=== PATIENT | female | born 1990 | race Caucasian/White ===

== ENCOUNTER 2019-08-06 05:48 | Inpatient (IN) | payer OTHER, MEDICAID ==
[~2019-08-06] VITALS: Ht 152.4 cm; Wt 78.6 kg
[2019-08-06] MEDS ORDERED: D5%-LACTATED RINGERS 1,000 ML IV SCH (05:51)
[2019-08-06] MEDS ORDERED: OXYTOCIN 30U/ 0.9% NaCL 500ML 500 ML IV ONE (05:51)
[2019-08-06] MEDS ORDERED: NEWBORN KIT ONE (05:55)
[2019-08-06] MEDS ORDERED: OXYTOCIN 30U/ 0.9% NaCL 500ML 500 ML ONE (05:55)
[2019-08-06] MEDS ORDERED: MISOPROSTOL 200 MCG TABLET ONE (05:55)
[2019-08-06] MEDS ORDERED: LIDOCAINE 1%, 20ML ONE (05:55)
[2019-08-06] MEDS ORDERED: CALCIUM CARBONATE 500 MG TAB.CHEW PO PRN (06:00)
[2019-08-06] MEDS ORDERED: TERBUTALINE 1 MG/ML, 1ML IVPush PRN (06:00)
[2019-08-06] MEDS ORDERED: FENTANYL PF 100 MCG/2ML IVPush PRN (06:00)
[2019-08-06] MEDS ORDERED: ONDANSETRON 2MG/ML, 2ML IVPush PRN (06:00)
[2019-08-06] MEDS ORDERED: TERBUTALINE 1 MG/ML, 1ML SQ PRN (06:00)
[2019-08-06] MEDS ORDERED: FENTANYL PF 100 MCG/2ML IV PRN (06:00)
[2019-08-06] MEDS ORDERED: PLEASE ENTER ALLERGIES MC SCH (06:00)
[2019-08-06 06:02] VITALS: BP 119/79
[2019-08-06] MEDS ORDERED: PREN-3 PO (06:07)
[2019-08-06] MEDS: LACTATED RINGERS 1,000 ML IV SCH ×4 (06:15→17:04)
[2019-08-06 06:49] LABS: MEAN CORPUSCULAR HEMOGLOBIN 31.4 pg (27.0-34.8); MEAN CORPUSCULAR HGB CONC 33.2 g/dL (32.4-35.8); MEAN CORPUSCULAR VOLUME 94.8 fL (80-100); MEAN PLATELET VOLUME 7.6 fL (7.4-10.4); PLATELET COUNT 266 x10^3/uL (130-400); RED BLOOD COUNT 3.61 x10^6/uL (3.82-5.3); RED CELL DISTRIBUTION WIDTH 14.8 % (9.6-15.2)
[2019-08-06] MEDS ORDERED: PENICILLIN GK 5,000,000 UNITS in DEXTROSE 5% 100 ML IVPB ONE (07:00)
[2019-08-06 07:07] LABS: BASOPHILS # (AUTO) 0.08 x10^3/uL (0-0.1); BASOPHILS % (AUTO) 1 % (0-1); EOSINOPHILS # (AUTO) 0.03 x10^3/uL (0-0.4); EOSINOPHILS % (AUTO) 0 % (1-7); LYMPHOCYTES # (AUTO) 2.26 x10^3/uL (1-3.4); LYMPHOCYTES % (AUTO) 28 % (22-44); MD SCAN; MONOCYTES # (AUTO) 0.53 x10^3/uL (0.2-0.8); MONOCYTES % (AUTO) 7 % (2-9); NEUTROPHILS # (AUTO) 5.18 x10^3/uL (1.8-6.8); NEUTROPHILS % (AUTO) 64 % (42-75)
[2019-08-06] MEDS ORDERED: OXYTOCIN 30U/ 0.9% NaCL 500ML 500 ML IV PRN (07:42)
[2019-08-06] MEDS: PENICILLIN GK 2,500,000 UNITS in DEXTROSE 5% 100 ML IVPB SCH ×5 (10:39→23:12)
[2019-08-06] MEDS ORDERED: FENTANYL/BUPIV./NS/PF 250 ML EPIDCONT ONE (17:06)
[2019-08-06] MEDS ORDERED: BUPIVACAINE 0.25% ONE (17:07)
[2019-08-06] MEDS ORDERED: LACTATED RINGERS 1,000 ML IV SCH (17:42)
[2019-08-06] MEDS ORDERED: FENTANYL/BUPIV./NS/PF 250 ML EPIDCONT SCH (17:42)
[2019-08-06] MEDS ORDERED: LACTATED RINGERS 1,000 ML IVBOLUS PRN (18:00)
[2019-08-06] MEDS ORDERED: LACTATED RINGERS 1,000 ML INTUTE PRN (18:30)
[2019-08-06] MEDS: LACTATED RINGERS 1,000 ML INTUTE SCH (19:06)
[2019-08-06] MEDS ORDERED: EYE EACHEYE SCH (21:00)
[2019-08-06] MEDS ORDERED: ZIOPTAN EACHEYE SCH (21:00)
[2019-08-06] MEDS ORDERED: EPHEDRINE 50 MG/ML, 1ML ONE (22:51)
[2019-08-07] MEDS ORDERED: TERBUTALINE 1 MG/ML, 1ML ONE (00:28)
[2019-08-07] MEDS ORDERED: EPHEDRINE 50 MG/ML, 1ML ONE ×2 (02:43→20:30)
[2019-08-07] MEDS: EPHEDRINE 50 MG/ML, 1ML IVPush PRN ×5 (02:46→20:48)
[2019-08-07] MEDS: PENICILLIN GK 2,500,000 UNITS in DEXTROSE 5% 100 ML IVPB SCH ×5 (02:53→18:49)
[2019-08-07] MEDS: LACTATED RINGERS 1,000 ML IV SCH ×2 (07:50→21:28)
[2019-08-07] MEDS ORDERED: LOSARTAN 25MG TABLET PO SCH (09:00)
[2019-08-07] MEDS ORDERED: SIMBRINZA EACHEYE SCH (09:00)
[2019-08-07] MEDS ORDERED: LIDOCAINE/MPF 2%-EPI 1:200K, 20 ML ONE (16:30)
[2019-08-07] MEDS ORDERED: FENTANYL/BUPIV./NS/PF 250 ML EPIDCONT ONE (16:31)
[2019-08-07] MEDS ORDERED: METOCLOPRAMIDE 5 MG/ML, 2ML ONE (16:46)
[2019-08-07] MEDS ORDERED: SODIUM CITRATE/CITRIC ACID 30 ML UDC ONE (16:46)
[2019-08-07] MEDS ORDERED: AZITHROMYCIN 500 MG in SODIUM CHLORIDE 0.9% 250 ML IV ONE (17:00)
[2019-08-07] MEDS ORDERED: METOCLOPRAMIDE 5 MG/ML, 2ML IV ONE (17:00)
[2019-08-07] MEDS ORDERED: SODIUM CITRATE/CITRIC ACID 30 ML UDC PO ONE (17:00)
[2019-08-07] MEDS: LACTATED RINGERS 1,000 ML INTUTE SCH (18:49)
[2019-08-07] MEDS ORDERED: morphine SULFATE/PF 0.5 MG/ML, 10ML ONE (19:25)
[2019-08-07] MEDS ORDERED: DEXAMETHASONE 4 MG/ML, 1ML ONE (19:26)
[2019-08-07] MEDS ORDERED: ONDANSETRON 2MG/ML, 2ML ONE (19:26)
[2019-08-07] MEDS ORDERED: KETOROLAC 30 MG/1 ML ONE (19:26)
[2019-08-07] MEDS ORDERED: CEFAZOLIN 1,000 MG ONE (19:26)
[2019-08-07] MEDS ORDERED: WATER-INJECTION,STERILE 10 ML IV ONE (19:26)
[2019-08-07] MEDS ORDERED: OXYTOCIN 10 UNITS/ML, 1ML ONE (19:26)
[2019-08-07] MEDS: KETOROLAC 30 MG/1 ML IV SCH (20:00)
[2019-08-07] MEDS ORDERED: EPHEDRINE 50 MG/ML, 1ML IVPush PRN (21:00)
[2019-08-07] MEDS ORDERED: MEPERIDINE/PF 25MG/0.5ML IVPush PRN (21:00)
[2019-08-07] MEDS ORDERED: OXYcodone 5 MG/5 ML ORAL.SOL UDC PO PRN (21:00)
[2019-08-07] MEDS ORDERED: OXYcodone/APAP 5/325MG TABLET PO PRN ×2 (21:00→21:30)
[2019-08-07] MEDS ORDERED: NALOXONE 0.4 MG/ML, 1ML IVPush PRN (21:00)
[2019-08-07] MEDS ORDERED: KETOROLAC 30 MG/1 ML IVPush PRN (21:00)
[2019-08-07] MEDS ORDERED: DIPHENHYDRAMINE 50 MG/ML, 1ML IVPush PRN (21:00)
[2019-08-07] MEDS ORDERED: DO NOT GIVE XX SCH (21:00)
[2019-08-07] MEDS ORDERED: FENTANYL PF 100 MCG/2ML IV PRN (21:00)
[2019-08-07] MEDS ORDERED: ONDANSETRON 2MG/ML, 2ML IVPush PRN ×2 (21:00)
[2019-08-07] MEDS ORDERED: PROMETHAZINE 25 MG/ML, 1ML IVPush PRN (21:00)
[2019-08-07] MEDS: OXYTOCIN 30U/ 0.9% NaCL 500ML 500 ML IV SCH (21:28)
[2019-08-07 22:00] VITALS: BP 105/72
[2019-08-08 02:00] VITALS: BP 112/75
[2019-08-08] MEDS: KETOROLAC 30 MG/1 ML IV SCH ×2 (02:04→09:30)
[2019-08-08] MEDS: OXYcodone/APAP 5/325MG TABLET PO PRN ×2 (04:52→09:30)
[2019-08-08 04:56] VITALS: BP 109/74
[2019-08-08 05:25] LABS: MEAN CORPUSCULAR HEMOGLOBIN 31.5 pg (27.0-34.8); MEAN CORPUSCULAR HGB CONC 33.1 g/dL (32.4-35.8); MEAN PLATELET VOLUME 7.6 fL (7.4-10.4); PLATELET COUNT 222 x10^3/uL (130-400); RED BLOOD COUNT 2.83 x10^6/uL (3.82-5.3); RED CELL DISTRIBUTION WIDTH 14.3 % (9.6-15.2)
[2019-08-08 07:18] LABS: BASOPHILS # (AUTO) 0.06 x10^3/uL (0-0.1); BASOPHILS % (AUTO) 1 % (0-1); EOSINOPHILS % (AUTO) 0 % (1-7); LYMPHOCYTES # (AUTO) 1.42 x10^3/uL (1-3.4); LYMPHOCYTES % (AUTO) 12 % (22-44); MD SCAN; MONOCYTES # (AUTO) 0.66 x10^3/uL (0.2-0.8); MONOCYTES % (AUTO) 6 % (2-9); NEUTROPHILS # (AUTO) 9.46 x10^3/uL (1.8-6.8); NEUTROPHILS % (AUTO) 81 % (42-75)
[2019-08-08] MEDS: LACTATED RINGERS 1,000 ML IV SCH (07:18)
[2019-08-08] MEDS: OXYTOCIN 30U/ 0.9% NaCL 500ML 500 ML IV SCH (07:18)
[2019-08-08 08:50] VITALS: BP 100/66
[2019-08-08] MEDS: DOCUSATE 100 MG CAPSULE PO PRN ×2 (09:30→19:22)
[2019-08-08] MEDS: PRENATAL VIT/IRON/FA 1 EACH TABLET PO SCH (09:30)
[2019-08-08] MEDS: IBUPROFEN 600 MG TABLET PO PRN ×3 (09:38→23:34)
[2019-08-08 12:59] VITALS: BP 104/72
[2019-08-08 16:45] VITALS: BP 104/71
[2019-08-08] MEDS: FERROUS SULFATE 325 MG TABLET PO SCH (18:20)
[2019-08-08 19:15] VITALS: BP 99/58
[2019-08-09 07:26] VITALS: BP 117/77
[2019-08-09] MEDS: PRENATAL VIT/IRON/FA 1 EACH TABLET PO SCH (07:30)
[2019-08-09] MEDS: DOCUSATE 100 MG CAPSULE PO PRN ×2 (07:30→21:24)
[2019-08-09] MEDS: FERROUS SULFATE 325 MG TABLET PO SCH ×2 (07:30→17:11)
[2019-08-09] MEDS: IBUPROFEN 600 MG TABLET PO PRN ×3 (07:30→21:24)
[2019-08-09] MEDS: OXYcodone/APAP 5/325MG TABLET PO PRN ×2 (07:32→21:25)
[2019-08-09 21:15] VITALS: BP 110/70
[2019-08-09] MEDS: SIMETHICONE 80 MG CHEW TAB PO PRN (21:26)
[2019-08-10] MEDS: OXYcodone/APAP 5/325MG TABLET PO PRN ×3 (05:21→17:04)
[2019-08-10] MEDS: SIMETHICONE 80 MG CHEW TAB PO PRN ×2 (05:21→12:22)
[2019-08-10] MEDS: IBUPROFEN 600 MG TABLET PO PRN ×3 (05:21→17:02)
[2019-08-10 08:00] VITALS: BP 106/62
[2019-08-10] MEDS: FERROUS SULFATE 325 MG TABLET PO SCH ×2 (12:22→17:02)
[2019-08-10] MEDS: DOCUSATE 100 MG CAPSULE PO PRN (12:22)
[2019-08-10] MEDS: PRENATAL VIT/IRON/FA 1 EACH TABLET PO SCH (12:22)
[2019-08-10] MEDS ORDERED: IBUP-1222 PO (18:00)
[2019-08-10] MEDS ORDERED: OXYC-302 PO (18:01)
[2019-08-10] MEDS ORDERED: DOCU-131 PO (18:02)
[2019-08-10] MEDS ORDERED: FERR324T5 PO (18:04)
== END 2019-08-10 21:05 | disposition home or self-care (01) | DRG 788 ==
LOC: LDIP 05:48 → 2NW 08-07 21:43
PROVIDERS: ADMIT Obstetrics & Gynecology; ATTEND Obstetrics & Gynecology
PROC: 10D00Z1 Extraction of Products of Conception, Low, Open Approach (ICD-10-PCS; principal; 2019-08-07)
PROC: 10H07YZ Insertion of Other Device into Products of Conception, Via Natural or Artificial Opening (ICD-10-PCS; 2019-08-07)
DX: O99.824 Streptococcus B carrier state complicating childbirth (principal); O76 Abnormality in fetal heart rate and rhythm complicating labor and delivery; Z37.0 Single live birth; Z3A.39 39 weeks gestation of pregnancy; O62.0 Primary inadequate contractions; O62.1 Secondary uterine inertia; Z20.828 Contact with and (suspected) exposure to other viral communicable diseases
CPT/HCPCS: 36415; J7121; 82803; 85025; 85460; 86592; 86850; 86900; G0378; J0456; J0690; J1100; J1885; J2274; J2405; J2540; J3490; J2590; J2765; J7050; J7120; U0001-CS